=== PATIENT | female | born 1985 | race African-American/Black ===

== ENCOUNTER 2016-04-03 22:25 | Emergency (ER) | payer OTHER ==
[~2016-04-03] VITALS: Ht 167.6 cm; Wt 95.3 kg
[~2016-04-03 22:25] MED LIST: BACTRIM DS TAB1 EACH PO; CYCLOBENZAPRINE5 M2 PO; METHADONE H5 MG/5 ML PO; PERCOCET 325 MG1 TA2 PO; PERCOCET 5-3251 EACH PO; ZOFRAN ODT4 M1 SL; ZOFRAN ODT4 MG PO
--- NOTE | 2016-04-03 23:42 | ED GI/GU/ABDOMINAL COMPLAINT ---
History of Present Illness General Chief Complaint: Abdominal Pain/Flank Pain Stated Complaint: ABD PAIN Source: patient Exam Limitations: no limitations Vital Signs & Intake/Output Vital Signs & Intake/Output Vital Signs Date Time Temp Pulse Resp B/P Pulse O2 O2 Flow FiO2 Ox Delivery Rate 04/04 0032 96.1 54 20 104/66 100 04/03 2229 98.7 74 18 146/87 99 Room Air Room Air ED Intake and Output 04/04 0000 04/03 1200 Intake Total Output Total Balance Patient 210 lb Weight Allergies Coded Allergies: NO KNOWN ALLERGIES (12/14/15) Reconcile Medications Ibuprofen 600 MG TABLET 1 TAB PO Q6P PRN PAIN with food Oxycodone HCl/Acetaminophen (Percocet 5-325 MG Tablet) 1 EACH TABLET 1-2 TAB PO Q6P PRN PAIN Tramadol HCl (Ultram) 50 MG TABLET 1-2 TAB PO Q6P PRN PAIN Triage Note: TRIAGE: 30 Y/O FEMALE PRESENTS C/O 01/10 RIGHT LOWER ABDOMINAL PAIN SINCE YESTERDAY MORNING. "FEELS LIKE MY CYST PAIN." LAST BM THIS MORNING. Triage Nurses Notes Reviewed? yes ? n Is pt currently ? No HPI: Patient presents for evaluation of a right lower quadrant abdominal pain that began gradually yesterday morning. Patient is describing a constant cramping pain similar to prior ovarian cysts. Her last menstrual period was normal last month. She is not menstruating currently. She denies any associated fever, cold symptoms, dysuria or vaginal discharge. She took Motrin 600 mg yesterday without improvement and try Tylenol today, also without improvement. Past History Travel History Traveled to [place] past 21 day No Medical History Any Pertinent Medical History? 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 No Review of Systems Review of Systems Constitutional: Reports: no symptoms. EENTM: Reports: no symptoms. Respiratory: Reports: no symptoms. Cardiovascular: Reports: no symptoms. GI: Reports: see HPI. Genitourinary: Reports: no symptoms. Musculoskeletal: Reports: no symptoms. Skin: Reports: no symptoms. Neurological/Psychological: Reports: no symptoms. Hematologic/Endocrine: Reports: no symptoms. Immunologic/Allergic: Reports: no symptoms. All Other Systems: Reviewed and Negative Physical Exam Physical Exam Gastrointestinal: see below Comments: Gen.: Well-nourished, well-developed, no acute respiratory distress. Head: Normocephalic, atraumatic. Eyes: Normal inspection bilaterally Ears: Normal inspection bilaterally Nose: Normal inspection Throat/mouth : Moist mucosa Neck: Supple, full range of motion, no goiter Heart: Regular rate and rhythm, no murmurs rubs or gallops Lungs: Clear to auscultation bilaterally with normal air entry Chest: Nontender Back: Normal range of motion Abdomen: Soft, diffuse tenderness with brief voluntary guarding, nondistended, normal bowel sounds Extremities: Normal range of motion grossly, equal radial pulses, no cyanosis clubbing or edema Neurologic: Cranial nerves grossly intact, speech is clear Skin: warm and dry Psychiatric: Calm, cooperative, no apparent delusions or hallucinations Core Measures ACS in differential dx? No Severe Sepsis Present: No Septic Shock Present: No Progress Differential Diagnosis: ovarian cyst, appendicitis Plan of Care: Orders Procedure Date/time Status LIPASE 04/03 234 Complete COMPREHENSIVE METABOLIC PANEL 04/03 234 Complete CBC WITHOUT DIFFERENTIAL 04/03 234 Complete URINE 04/03 2226 Complete URINALYSIS 04/03 2226 Complete Current Medications Sig/Joss Start time Last Medication Dose Stop Time Status Admin Morphine Sulfate 4 MG ONCE ONE 04/04 013 UNVr (Morphine) 04/04 0131 Laboratory Tests 04/04/16 0044: Anion Gap 11, Estimated GFR > 60, BUN/Creatinine Ratio 25.0, Glucose 90, Calcium 9.6, Total Bilirubin 0.4, AST 24, ALT 34, Alkaline Phosphatase 53, Total Protein 7.0, Albumin 4.2, Globulin 2.8, Albumin/Globulin Ratio 1.5, Lipase 51 04/04/16 0010: Urinalysis LIGHT H, Urine Color STRAW, Urine Clarity CLDY H, Urine pH 7.0, Ur Specific [place] 1.020, Urine Protein NEG, Urine Ketones NEG, Urine Nitrite NEG, Urine Bilirubin NEG, Urine Urobilinogen 0.2, Ur Leukocyte Esterase TRACE H, Ur Microscopic SEDIMENT EXAMINED, Urine RBC 1-3, Urine WBC 3-5 H, Ur Epithelial Cells MANY H, Urine Mucus RARE, Urine Hemoglobin TRACE-LYSED, Urine Glucose NEG , Urine Test NEGATIVE 04/04/16 0000: CBC w Diff NO MAN DIFF REQ, RBC 5.27, MCV 78.1 L, MCH 25.4 L, RDW 14.9 H, MPV 8.8, Gran % 52.1, Lymphocytes % 37.9, Monocytes % 8.7, Eosinophils % 0.9, Basophils % 0.4, Absolute Granulocytes 4.6, Absolute Lymphocytes 3.3, Absolute Monocytes 0.8 H, Absolute Eosinophils 0.1, Absolute Basophils 0, PUBS MCHC 32.5 L Initial ED EKG: none Comments: 04/04/2016 1:28:07 AM I have updated the patient on test results. She states she is still having discomfort so have ordered a dose of morphine. I have looked at her imaging studies back to mid 2013. She did have an ovarian cyst at that point but subsequently has had no significant ovarian cysts and no ovarian torsions with repeated evaluations. Regarding today's presentation there is no indication of appendicitis, diverticulitis, renal colic ovarian cyst or ovarian torsion on CAT scan. I feel she is stable for outpatient management. Her primary care physician. Departure Departure Disposition: HOME OR SELF CARE Condition: Stable Clinical Impression Primary Impression: Nonspecific abdominal pain Secondary Impressions: Liver lesion Referrals: CLIFF HYLTON APRN (PCP/Family) Referred to [facility] as new patient No Additional Instructions: Ibuprofen 600 mg every 6 hours as needed for pain. Add tramadol as needed for pain. Follow-up with your primary care doctor for reevaluation today. Return if any concerns or sudden worsening. Please note that there might be incidental findings in your evaluation that are unrelated to the current emergency department visit. Please notify your primary care doctor about this emergency department visit in order to obtain and review all of the testing performed so that these incidental findings can be monitored as needed. If you had an x-ray performed, please understand that some fractures may not be seen on the initial set of x-rays. If your symptoms persist you might need a repeat set of x-rays to check for such a fracture. If you had a laceration evaluated, please understand that foreign bodies such as glass or wood may not be visible to the naked eye or on plain x-rays. If the wound becomes red, swollen, increasingly more painful or if there is any drainage from the wound, please have it reevaluated by a physician for the possibility of a retained foreign body. Thank you for choosing the [facility] for your care. It was a pleasure to serve you today. Delmar Bird M.D. [facility] Departure Forms: Customer Survey General Discharge Information Prescriptions: Current Visit Scripts Ibuprofen 1 TAB PO Q6P PRN PAIN #20 TAB with food Tramadol HCl (Ultram) 1-2 TAB PO Q6P PRN PAIN #12 TAB Critical Care Note Critical Care Note Critical Care Time: 30-74 min
[2016-04-04 00:22] LABS: ABSOLUTE BASOPHIL COUNT 0 /CUMM (0.0-0.2); ABSOLUTE EOSINOPHIL COUNT 0.1 /CUMM (0.0-0.7); ABSOLUTE GRANULOCYTE CT 4.6 /CUMM (1.4-6.5); ABSOLUTE LYMPH COUNT 3.3 /CUMM (1.2-3.4); ABSOLUTE MONOCYTE COUNT 0.8 /CUMM (0.10-0.60); BASOPHIL % 0.4 % (0.0-2.0); EOSINOPHIL % 0.9 % (0-5); GRANULOCYTE % 52.1 % (42.2-75.2); HEMATOCRIT 41.2 % (37-47); MEAN CORPUSCULAR HGB 25.4 PG (27.0-31.0); MEAN CORPUSCULAR HGB CONC 32.5 G/DL (33.0-37.0); MEAN CORPUSCULAR VOLUME 78.1 FL (81.0-99.0); MEAN PLATELET VOLUME 8.8 FL (7.4-10.4); PLATELET COUNT 277 /CUMM (130-400); RBC DISTRIBUTION WIDTH 14.9 % (11.5-14.5); RED BLOOD CELL CT 5.27 /CUMM (4.20-5.40); WHITE BLOOD CELL COUNT 8.8 /CUMM (4.8-10.8)
[2016-04-04 00:32] VITALS: BP 104/66
--- NOTE | 2016-04-04 01:19 | CT SCAN REPORT ---
EXAMINATION: CT ABDOMEN AND PELVIS WITH CONTRAST CLINICAL INFORMATION: Right lower quadrant abdominal pain. Presumptive diagnosis: Appendicitis, right ovarian cyst. COMPARISON: 08/27/2015 TECHNIQUE: Multidetector volumetric imaging was performed of the abdomen and pelvis before and after the IV administration of 93 mL of Optiray 320 intravenous contrast. Sagittal and coronal reformatted images were obtained on the technologist's workstation. DLP: 816.7 mGy-cm. FINDINGS: LUNG BASES: The visualized lung bases are unremarkable. LIVER, GALLBLADDER, AND BILIARY TREE: The liver is normal in size, shape, and attenuation. There is a subtle 0.9 cm focus of hypoattenuation in the posterior segment 5 on image 29/91 of series 2 which is unchanged from 2012 and of doubtful clinical significance, possibly a small cyst or hemangioma. The subtle 2.2 cm focus of enhancement within segment 8/4 a (image 14/91 of series 2) is not significantly changed in size as compared to 2012. The gallbladder is unremarkable with no evidence of radiopaque gallstones, gallbladder wall thickening, or obvious pericholecystic inflammatory changes. PANCREAS: Unremarkable. SPLEEN: Unremarkable. ADRENAL GLANDS: Unremarkable. KIDNEYS AND URETERS: The kidneys are normal in size, shape, and attenuation. No hydronephrosis, hydroureter, or calculi seen. No perinephric stranding. BLADDER: Unremarkable. GASTROINTESTINAL TRACT: Stomach, small bowel, and colon are normal in caliber. No bowel wall thickening or surrounding inflammatory changes are identified. Appendix is normal. No intraperitoneal free fluid or free air. ABDOMINAL WALL: No significant hernia is appreciated. LYMPH NODES: Normal. VASCULAR: Unremarkable. PELVIC VISCERA: No acute uterine abnormalities are identified. Ovaries are unremarkable. There is no intrapelvic free fluid is appreciated. OSSEOUS STRUCTURES: Unremarkable. IMPRESSION: 1. No acute intra-abdominal or intrapelvic abnormalities. Normal appendix. Uterus and ovaries are unremarkable, though ultrasound would be more sensitive and specific for evaluation of both. 2. Subtle hypodense and hypoenhancing nodules within the liver which appear unchanged dating back to 2012. These may correspond to cysts or hemangiomas. MRI of the abdomen with and without contrast would be more definitive.
[2016-04-04] MEDS ORDERED: ULTRAM50 M1 PO (01:31)
[2016-04-04] MEDS ORDERED: IBUPROFEN600 M1 PO (01:31)
== END 2016-04-04 01:56 ==
LOC: ERH 22:25
PROVIDERS: Emergency Medicine
DX: K76.9 Liver disease, unspecified (principal); R10.31 Right lower quadrant pain
CPT/HCPCS: 74177; 81001; 81025; 96361; 96374; 96375; J1885; J2405

== ENCOUNTER 2016-04-17 21:41 | Emergency (ER) | payer OTHER ==
[~2016-04-17 21:41] MED LIST changes: +IBUPROFEN600 M1 PO; +ULTRAM50 M1 PO
--- NOTE | 2016-04-17 22:24 | ED GI/GU/ABDOMINAL COMPLAINT ---
History of Present Illness General Chief Complaint: Abdominal Pain/Flank Pain Stated Complaint: ABD PAIN Source: patient, family, old records Exam Limitations: no limitations Vital Signs & Intake/Output Vital Signs & Intake/Output Vital Signs Date Time Temp Pulse Resp B/P Pulse O2 O2 Flow FiO2 Ox Delivery Rate 04/18 0149 97.8 56 18 114/69 98 Room Air 04/17 2239 Room Air 04/17 2155 96.8 71 18 124/75 98 Room Air ED Intake and Output 04/18 0000 04/17 1200 Intake Total 1000 Output Total Balance 1000 Intake, IV 1000 Allergies Coded Allergies: NO KNOWN ALLERGIES (12/14/15) Reconcile Medications Ibuprofen 600 MG TABLET 1 TAB PO Q6P PRN PAIN with food Oxycodone HCl/Acetaminophen (Percocet 5-325 MG Tablet) 1 EACH TABLET 1-2 TAB PO Q6P PRN PAIN Tramadol HCl (Ultram) 50 MG TABLET 1-2 TAB PO Q6P PRN PAIN Triage Note: TRIAGE; PT TO ED C/O RT SIDED ABD PAIN XFEW HOURS. STATES PAIN NO MATTER WHAT SHE IS DOING. PT STATES THAT SHE IS +N/V. DENIES ANY DIARRHEA. Triage Nurses Notes Reviewed? yes ? N Is pt currently ? No HPI: Patient had a sudden onset of right adnexal pain approximately 2 hours prior to arrival. The pain is sharp and stabbing in nature. There is no radiation. Pain is 10 out of 10. There are no aggravating or mitigating factors. Positive nausea and vomiting. No diarrhea. No dysuria or hematuria. Similar symptoms in the past when she's had a twisting of her ovary per the patient. Past History Travel History Traveled to [place] past 21 day No Medical History Any Pertinent Medical History? 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 No Review of Systems Review of Systems Constitutional: Reports: no symptoms. EENTM: Reports: no symptoms. Respiratory: Reports: no symptoms. Cardiovascular: Reports: no symptoms. GI: Reports: see HPI, abdominal pain, nausea, vomiting. Genitourinary: Reports: no symptoms. Musculoskeletal: Reports: no symptoms. Skin: Reports: no symptoms. Neurological/Psychological: Reports: no symptoms. Hematologic/Endocrine: Reports: no symptoms. Immunologic/Allergic: Reports: no symptoms. All Other Systems: Reviewed and Negative Physical Exam Physical Exam General Appearance: well developed/nourished, alert, awake, anxious, severe distress Head: atraumatic, normal appearance Eyes: Bilateral: PERRL, EOMI. Ears, Nose, Throat, Mouth: hearing grossly normal, moist mucous membrane Neck: normal inspection, supple Respiratory: normal breath sounds, chest non-tender, no respiratory distress, lungs clear Cardiovascular: regular rate/rhythm, normal peripheral pulses Gastrointestinal: normal bowel sounds, soft, guarding, tenderness Pelvic: normal external exam, normal speculum exam, no cerv. motion tender, tender adnexa (RIGHT) Back: normal inspection, normal range of motion, NO CVA TENDERNESS Extremities: normal range of motion Neurologic/Psych: no motor/sensory deficits, awake, alert, oriented x 3, normal mood/affect Skin: intact, normal color, warm/dry Core Measures ACS in differential dx? No Severe Sepsis Present: No Septic Shock Present: No Progress Differential Diagnosis: appendicitis, ectopic , ovarian cyst, ovarian torsion, UTI/pyelo Plan of Care: Orders Procedure Date/time Status Add-on Test (ER Only) 04/18 0146 Active GENITAL CULTURE 04/18 0133 Active TRICHOMONAS 04/18 0132 Complete POTASSIUM HYDROXIDE (EMA) 04/18 013 Active CHLAMYDIA-GC DNA PROBE 04/18 013 Active URINALYSIS 04/17 2223 Active HUMAN BETA HCG SCREEN 04/17 2223 Complete COMPREHENSIVE METABOLIC PANEL 04/17 2223 Complete CBC WITHOUT DIFFERENTIAL 04/17 2223 Complete Current Medications Sig/Joss Start time Last Medication Dose Stop Time Status Admin Hydromorphone HCl 1 MG ONCE ONE 04/18 2345 CAN (Dilaudid) 04/18 2346 Laboratory Tests 04/18/16 0023: Anion Gap 8, Estimated GFR > 60, BUN/Creatinine Ratio 24.3, Glucose 113 H, Calcium 9.3, Total Bilirubin 0.5, AST 23, ALT 32, Alkaline Phosphatase 59, Total Protein 6.9, Albumin 4.1, Globulin 2.8, Albumin/Globulin Ratio 1.5, Total Beta HCG NEGATIVE 04/17/166: CBC w Diff NO MAN DIFF REQ, RBC 5.04, MCV 78.6 L, MCH 25.3 L, RDW 14.6 H, MPV 8.1, Gran % 73.7, Lymphocytes % 17.5 L, Monocytes % 8.5, Eosinophils % 0.1, Basophils % 0.2, Absolute Granulocytes 7.4 H, Absolute Lymphocytes 1.8, Absolute Monocytes 0.9 H, Absolute Eosinophils 0, Absolute Basophils 0, PUBS MCHC 32.2 L Microbiology 04/18 132 GENITAL: Genital Culture - RECD 04/18 132 GENITAL: GC DNA Probe - RECD 04/18 132 GENITAL: Chlamydia DNA Probe (GRACIELA) - RECD 04/18 132 GENITAL: EMA Preparation - RECD 04/18 132 GENITAL: Trichomonas Preparation - COMP Diagnostic Imaging: Viewed by Me: Ultrasound. Discussed w/RAD: Ultrasound. Radiology Impression: PATIENT: JAI IZQUIERDO PRESENT AGE: 30 PATIENT ACCOUNT NO: [id number] : 87 LOCATION: [facility] ORDERING PHYSICIAN: DALIA IBARRA MD SERVICE DATE: 04/17/16 EXAM TYPE: US - US-TRANSVAGINAL EXAMINATION: US TRANSVAGINAL CLINICAL INFORMATION: Sudden onset right adnexal pain COMPARISON: CT 04/04/2016 TECHNIQUE: Sonographic evaluation of the pelvis was performed transabdominally and transvaginally. FINDINGS: The uterus measures 8.0 cm in length and 3.8 x 4.7 cm in AP and transverse dimensions. The endometrial stripe measures 0.3 cm in thickness. The cervix measures 2.2 cm in length. The right ovary measures 2.7 x 1.7 x 3.1 cm in size and contains several cysts suggestive of follicles. The left ovary measures 3.2 x 1.7 x 3.0 cm and also contains several small cysts. Doppler evaluation demonstrates normal-appearing flow in the bilateral kidneys. A small to moderate amount of fluid is noted in the right adnexa adjacent to the right ovary. IMPRESSION: No specific findings for ovarian torsion. Nonspecific right adnexal free fluid. DICTATED BY: ZOILA SOLORZANO MD DATE/TIME DICTATED:04/18/169 [employer] AGENT:ERICK DATE/TIME TRANSCRIBED:04/18/169 CONFIDENTIAL, DO NOT COPY WITHOUT APPROPRIATE AUTHORIZATION. <Electronically signed in Other Vendor System> SIGNED BY: ZOILA SOLORZANO MD 04/18/1616 Initial ED EKG: none Comments: No relief from IV morphine. Departure Departure Disposition: HOME OR SELF CARE Condition: Stable Clinical Impression Primary Impression: Lower abdominal pain, unspecified Referrals: CLIFF HYLTON APRN (PCP/Family) MANUEL RODRIGUEZ,NIK Whittaker Additional Instructions: FOLLOW UP WITH DR. JACKSON RETURN NEEDED Departure Forms: Customer Survey General Discharge Information Prescriptions: Current Visit Scripts Oxycodone HCl/Acetaminophen (Percocet 5-325 MG Tablet) 1-2 TAB PO Q6P PRN PAIN #20 TAB
[2016-04-17 22:50] LABS: ABSOLUTE BASOPHIL COUNT 0 /CUMM (0.0-0.2); ABSOLUTE EOSINOPHIL COUNT 0 /CUMM (0.0-0.7); ABSOLUTE GRANULOCYTE CT 7.4 /CUMM (1.4-6.5); ABSOLUTE LYMPH COUNT 1.8 /CUMM (1.2-3.4); ABSOLUTE MONOCYTE COUNT 0.9 /CUMM (0.10-0.60); BASOPHIL % 0.2 % (0.0-2.0); EOSINOPHIL % 0.1 % (0-5); GRANULOCYTE % 73.7 % (42.2-75.2); HEMATOCRIT 39.6 % (37-47); MEAN CORPUSCULAR HGB 25.3 PG (27.0-31.0); MEAN CORPUSCULAR HGB CONC 32.2 G/DL (33.0-37.0); MEAN CORPUSCULAR VOLUME 78.6 FL (81.0-99.0); MEAN PLATELET VOLUME 8.1 FL (7.4-10.4); PLATELET COUNT 282 /CUMM (130-400); RBC DISTRIBUTION WIDTH 14.6 % (11.5-14.5); RED BLOOD CELL CT 5.04 /CUMM (4.20-5.40); WHITE BLOOD CELL COUNT 10.1 /CUMM (4.8-10.8)
--- NOTE | 2016-04-18 00:17 | ULTRASOUND REPORT ---
EXAMINATION: US TRANSVAGINAL CLINICAL INFORMATION: Sudden onset right adnexal pain COMPARISON: CT 04/04/2016 TECHNIQUE: Sonographic evaluation of the pelvis was performed transabdominally and transvaginally. FINDINGS: The uterus measures 8.0 cm in length and 3.8 x 4.7 cm in AP and transverse dimensions. The endometrial stripe measures 0.3 cm in thickness. The cervix measures 2.2 cm in length. The right ovary measures 2.7 x 1.7 x 3.1 cm in size and contains several cysts suggestive of follicles. The left ovary measures 3.2 x 1.7 x 3.0 cm and also contains several small cysts. Doppler evaluation demonstrates normal-appearing flow in the bilateral kidneys. A small to moderate amount of fluid is noted in the right adnexa adjacent to the right ovary. IMPRESSION: No specific findings for ovarian torsion. Nonspecific right adnexal free fluid.
[2016-04-18 01:49] VITALS: BP 114/69
[2016-04-18] MEDS ORDERED: PERCOCET 5-3251 EACH PO (02:04)
== END 2016-04-18 02:29 ==
LOC: ERH 21:41
PROVIDERS: Emergency Medicine
DX: R10.31 Right lower quadrant pain (principal)
CPT/HCPCS: 87070; 87491; 87591; 96374; 96375; 96376; J1885; J2405

== ENCOUNTER 2016-06-14 15:29 | Emergency (ER) | payer OTHER ==
[~2016-06-14] VITALS: Ht 165.1 cm; Wt 95.3 kg
--- NOTE | 2016-06-14 15:43 | ED UPPER/LOWER EXTREMITY COMPL ---
History of Present Illness General Chief Complaint: Lower Extremity Injury Stated Complaint: PT HAD A FALL AND PAIN IN THE LEFT ANKLE Source: patient Exam Limitations: no limitations Vital Signs & Intake/Output Vital Signs & Intake/Output Vital Signs Date Time Temp Pulse Resp B/P Pulse O2 O2 Flow FiO2 Ox Delivery Rate 06/14 1533 97.1 88 18 145/80 98 Room Air Allergies Coded Allergies: NO KNOWN ALLERGIES (12/14/15) Reconcile Medications Hydrocodone/Acetaminophen (Vicodin 5-300 MG Tablet) 5 MG-300 MG TABLET 1 TAB PO BID PRN PAIN Ibuprofen 600 MG TABLET 1 TAB PO Q6P PRN PAIN with food Oxycodone HCl/Acetaminophen (Percocet 5-325 MG Tablet) 1 EACH TABLET 1-2 TAB PO Q6P PRN PAIN Oxycodone HCl/Acetaminophen (Percocet 5-325 MG Tablet) 5 MG-325 MG TABLET 1-2 TAB PO Q6P PRN PAIN Tramadol HCl (Ultram) 50 MG TABLET 1-2 TAB PO Q6P PRN PAIN Triage Note: PT STATES THAT SHE WAS STANDING ON CHAIR [employer] LAST PM WHEN THE CHAIR BROKE AND SHE HURT HER L FOOT. SWELLING NOTED. TOOK TYLENOL Triage Nurses Notes Reviewed? yes Onset: Abrupt Duration: constant Timing: single episode today Severity: severe Severity Numbers: 10 Pain/Injury Location: Left: Foot. Method of Injury: direct blow, fall : No Patient currently breastfeeds: No HPI: Patient is a 30-year-old female who presents to emergency room saying that today she was standing on approximate 1 foot high stool where she subsequently lost her balance and fell off striking the left lateral aspect of her foot to the ground resulting acute onset of pain. Patient denies any ankle knee pain. Patient took ibuprofen and Tylenol prior to arrival without relief of symptoms. States ambulation makes worse. Skin is still intact. Denies any head strike. (NICA BUENO) Past History Travel History Traveled to [place] past 21 day No Medical History Any Pertinent Medical History? 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 No (NICA BUENO) Review of Systems Review of Systems Constitutional: Reports: no symptoms. EENTM: Reports: no symptoms. Respiratory: Reports: no symptoms. Cardiovascular: Reports: no symptoms. Gastrointestinal/Abdominal: Reports: no symptoms. Genitourinary: Reports: no symptoms. Musculoskeletal: Reports: see HPI. Skin: Reports: no symptoms. Neurological/Psychological: Reports: no symptoms. Hematologic/Endocrine: Reports: no symptoms. Immunological: Reports: no symptoms. All Other Systems: Reviewed and Negative (NICA BUENO) Physical Exam Physical Exam General Appearance: mild distress Head: atraumatic Eyes: Bilateral: normal appearance. Ears, Nose, Throat: hearing grossly normal Neck: normal inspection, supple, full range of motion Back: normal inspection, normal range of motion, no vertebral tenderness Knee Left: normal range of motion, normal inspection Neurologic/Tendon: normal sensation, normal motor functions, normal tendon functions, responds to pain, no evidence tendon injury, no pulse deficit Skin: intact, normal color, warm/dry Comments: Left knee normal inspection nontender full active range of motion Left ankle normal section nontender full active range of motion Left foot noted severe point tenderness to the base of the fifth metatarsal and lateral aspect fifth ray. Skin intact no swelling dermatomes intact pulse +2 (NICA BUENO) Progress Differential Diagnosis: arterial insufficiency, compartment syndrome, contusion, dislocation, DVT, fracture, gout, septic arthritis, sprain, tendon injury Plan of Care: Orders Procedure Date/time Status Durable Medical Equipment 06/14 1650 Active URINE 06/14 1542 Complete Laboratory Tests 06/14/16 1555: Urine Test NEGATIVE Epifanio wrap was placed to left foot and post neurovascular was intact No osseous injury noted on x-rays. Patient was provided with crutches. Patient has nontender ankle (NICA BUENO) Diagnostic Imaging: Viewed by Me: Radiology Read. Radiology Impression: no acute abnormality, no fracture Comments: PATIENT: JAI IZQUIERDO PRESENT AGE: 30 PATIENT ACCOUNT NO: [id number] : 87 LOCATION: [facility] ORDERING PHYSICIAN: MARISSA UNGER DO SERVICE DATE: 06/14/16 EXAM TYPE: RAD - XRY-FOOT COMPLETE, LEFT EXAMINATION: XR FOOT, LEFT CLINICAL INFORMATION: Left foot pain and swelling after fall COMPARISON: None TECHNIQUE: AP, lateral, and oblique views of the left foot. FINDINGS: There is no evidence of acute fracture or dislocation of the left foot. No significant soft tissue swelling is appreciated. IMPRESSION: No acute fracture or dislocation of the left foot. (NICA BUENO) Departure Departure Disposition: HOME OR SELF CARE Condition: Stable Clinical Impression Primary Impression: Sprain of left foot Referrals: CLIFF HYLTON APRN (PCP/Family) GIOVANNA RODRIGUEZ,MARIA INES Workman Additional Instructions: As discussed begin icing the area directly 20 minutes every 2 hours. Begin over -the-counter ibuprofen as directed for pain and inflammation. Begin the prescription of Vicodin for breakthrough pain relief. prescription is waiting at [facility] pharmacy. If no better in one week follow-up with orthopedic Dr. Mccormick. If symptoms worsen return to emergency room. use the crutches provided to the emergency room until you can walk without pain Departure Forms: Customer Survey General Discharge Information Prescriptions: Current Visit Scripts Hydrocodone/Acetaminophen (Vicodin 5-300 MG Tablet) 1 TAB PO BID PRN PAIN #6 TAB (NICA BUENO) PA/AUTOMOTIVE SERVICE PORTER Co-Sign Statement Statement: ED Attending supervision documentation- [] I saw and evaluated the patient. I have also reviewed all the pertinent lab results and diagnostic results. I agree with the findings and the plan of care as documented in the PA's/AUTOMOTIVE SERVICE PORTER's documentation. x I have reviewed the ED Record and agree with the PA's/AUTOMOTIVE SERVICE PORTER's documentation. [] Additions or exceptions (if any) to the PAs/AUTOMOTIVE SERVICE PORTER's note and plan are summarized below: [] (MUSTAPHA RODRIGUEZ,MARYAM)
--- NOTE | 2016-06-14 16:49 | RADIOLOGY REPORT ---
EXAMINATION: XR FOOT, LEFT CLINICAL INFORMATION: Left foot pain and swelling after fall COMPARISON: None TECHNIQUE: AP, lateral, and oblique views of the left foot. FINDINGS: There is no evidence of acute fracture or dislocation of the left foot. No significant soft tissue swelling is appreciated. IMPRESSION: No acute fracture or dislocation of the left foot.
[2016-06-14] MEDS ORDERED: VICODIN 5-3001 EACH PO (16:51)
[2016-06-14 17:02] VITALS: BP 140/78
== END 2016-06-14 17:02 ==
LOC: ERH 15:29
DX: S93.602A Unspecified sprain of left foot, initial encounter (principal); W17.89XA Other fall from one level to another, initial encounter
CPT/HCPCS: 73630-LT; 81025

== ENCOUNTER 2016-07-25 12:51 | Emergency (ER) | payer OTHER ==
[~2016-07-25] VITALS: Ht 165.1 cm; Wt 95.3 kg
[~2016-07-25 12:51] MED LIST changes: +VICODIN 5-3001 EACH PO
[2016-07-25 13:09] VITALS: BP 124/77
[2016-07-25 13:29] LABS: ABSOLUTE BASOPHIL COUNT 0 /CUMM (0.0-0.2); ABSOLUTE EOSINOPHIL COUNT 0 /CUMM (0.0-0.7); ABSOLUTE GRANULOCYTE CT 4.9 /CUMM (1.4-6.5); ABSOLUTE LYMPH COUNT 2.4 /CUMM (1.2-3.4); ABSOLUTE MONOCYTE COUNT 0.4 /CUMM (0.10-0.60); BASOPHIL % 0.6 % (0.0-2.0); EOSINOPHIL % 0.4 % (0-5); GRANULOCYTE % 63.2 % (42.2-75.2); HEMATOCRIT 39.7 % (37-47); MEAN CORPUSCULAR HGB 25.5 PG (27.0-31.0); MEAN CORPUSCULAR HGB CONC 32.8 G/DL (33.0-37.0); MEAN CORPUSCULAR VOLUME 77.7 FL (81.0-99.0); MEAN PLATELET VOLUME 8.4 FL (7.4-10.4); PLATELET COUNT 276 /CUMM (130-400); RBC DISTRIBUTION WIDTH 14.4 % (11.5-14.5); RED BLOOD CELL CT 5.11 /CUMM (4.20-5.40); WHITE BLOOD CELL COUNT 7.8 /CUMM (4.8-10.8)
--- NOTE | 2016-07-25 14:37 | ED GI/GU/ABDOMINAL COMPLAINT ---
History of Present Illness General Chief Complaint: Abdominal Pain/Flank Pain Stated Complaint: ABD PAIN Source: patient Exam Limitations: no limitations Vital Signs & Intake/Output Vital Signs & Intake/Output Vital Signs Date Time Temp Pulse Resp B/P B/P Pulse O2 O2 Flow FiO2 Mean Ox Delivery Rate 07/25 1309 98.2 62 20 124/77 97 Room Air Allergies Coded Allergies: NO KNOWN ALLERGIES (12/14/15) Reconcile Medications Hydrocodone/Acetaminophen (Vicodin 5-300 MG Tablet) 5 MG-300 MG TABLET 1 TAB PO BID PRN PAIN Ibuprofen 600 MG TABLET 1 TAB PO Q6P PRN PAIN with food Oxycodone HCl/Acetaminophen (Percocet 5-325 MG Tablet) 1 EACH TABLET 1-2 TAB PO Q6P PRN PAIN Oxycodone HCl/Acetaminophen (Percocet 5-325 MG Tablet) 5 MG-325 MG TABLET 1-2 TAB PO Q6P PRN PAIN Oxycodone HCl/Acetaminophen (Percocet 5-325 MG Tablet) 5 MG-325 MG TABLET 1 TAB PO Q6HR PRN pain Tramadol HCl (Ultram) 50 MG TABLET 1-2 TAB PO Q6P PRN PAIN Triage Note: RLQ ABDOMINAL PAIN SINCE YESTERDAY. + NAUSEA. PT STATES PAIN GETTING WORSE TODAY Triage Nurses Notes Reviewed? yes ? n Is pt currently ? No Onset: Gradual Duration: day(s): (1) Timing: recent history Quality/Severity: sharpness, severe Severity Numbers: 10 Location: suprapubic Radiation: no radiation Activities at Onset: none Prior Abdominal Problems: similar symptoms Past Sexual History: Unobtainable at this time No Modifying Factors: none HPI: Patient is a 30-year-old female with history of ovarian cysts presenting to the emergency department with chief complaint of right suprapubic pain nothing going on since yesterday. History of similar pain in the past when she had an ovarian cyst. The last time she saw her SERVICE LEARNING COORDINATOR was a few months ago and everything was normal. Denies any fevers or chills. Positive nausea but no vomiting. No chest pain palpitations or shortness of breath. She's been taking over-the- counter ibuprofen and Tylenol with no relief. Denies any urinary frequency urgency or dysuria. Denies any vaginal discharge or bleeding. Last menstrual period was on June 20. Denies chance of STD. (EVELYN CASEY) Past History Travel History Traveled to [place] past 21 day No Medical History Any Pertinent Medical History? see below for history Neurological: NONE EENT: NONE Cardiovascular: NONE Respiratory: NONE Gastrointestinal: NONE Hepatic: NONE Renal: NONE Musculoskeletal: NONE Psychiatric: NONE Endocrine: NONE Blood Disorders: NONE Cancer(s): NONE RADIO JOURNALIST/Reproductive: OVARIAN CYSTS Surgical History Surgical History: OVARIAN CYST REMOVAL Psychosocial History What is your primary language Luxembourgish Tobacco Use: Never used ETOH Use: denies use Illicit Drug Use: denies illicit drug use Family History Hx Contributory? No (EVELYN CASEY) Review of Systems Review of Systems Constitutional: Reports: no symptoms. Comments Review of systems: See HPI, All other systems negative. Constitutional, no chills fever or weight loss HEENT: No visual changes no sore throat no congestion Cardiovascular: No chest pain Skin, no jaundice no rashes Respiratory: No dyspnea cough sputum or hemoptysis GI: no vomiting : No dysuria No hematuria Muscle skeletal: no back pain, no neck pain, Neurologic: No numbness no confusion Psych: No stress anxiety or depression,. Heme/endocrine: No bruising no bleeding no polyuria or polydipsia Immunology: No splenectomy or history of AIDS (EVELYN CASEY) Physical Exam Physical Exam General Appearance: well developed/nourished, no apparent distress, alert, awake , comfortable Gastrointestinal: soft, tenderness Comments: Obese person in no acute distress HEENT: Pupils equally round and reactive to light and accommodation. Nose is atraumatic. Neck: Normal inspection Back: Nontender, no CVA tenderness. Cardiovascular: Regular rate and rhythms no murmurs rubs or gallops, normal JVP Respiratory: Chest nontender. No respiratory distress.breath sounds clear to auscultation bilaterally Abdomen: Soft, tender to palpation in the right suprapubic region, no rebound or guarding, nondistended, no appreciable organomegaly. Normal bowel sounds. No ascites Extremity: No edema Neuro: Alert oriented x3 Skin: No appreciable rash on exposed skin, skin is warm and dry. Psych: Mood and affect is normal, memory and judgment is normal. Core Measures ACS in differential dx? No Severe Sepsis Present: No Septic Shock Present: No (EVELYN CASEY) Progress Differential Diagnosis: kidney stone, ovarian cyst, ovarian torsion, UTI/pyelo Plan of Care: Orders Procedure Date/time Status Add-on Test (ER Only) 07/25 1448 Active CULTURE,URINE 07/25 1325 Active COMPREHENSIVE METABOLIC PANEL 07/25 1315 Complete CBC WITHOUT DIFFERENTIAL 07/25 1315 Complete URINE 07/25 1257 Complete URINALYSIS 07/25 1257 Complete Laboratory Tests 07/25/16 1325: Urine Color YEL, Urine Clarity HAZY H, Urine pH 6.0, Ur Specific [place] 1.020, Urine Protein NEG, Urine Ketones TRACE H, Urine Nitrite NEG, Urine Bilirubin NEG, Urine Urobilinogen 1.0, Ur Leukocyte Esterase TRACE H, Ur Microscopic SEDIMENT EXAMINED, Urine RBC RARE, Urine WBC 3-5 H, Ur Epithelial Cells MOD H, Urine Bacteria FEW H, Urine Mucus FEW, Urine Hemoglobin TRACE-INTACT, Urine Glucose NEG, Urine Test NEGATIVE 07/25/16 1320: Anion Gap 11, Estimated GFR > 60, BUN/Creatinine Ratio 16.7, Glucose 90, Calcium 9.0, Total Bilirubin 0.5, AST 20, ALT 31, Alkaline Phosphatase 52, Total Protein 6.9, Albumin 4.0, Globulin 2.9, Albumin/Globulin Ratio 1.4, CBC w Diff NO MAN DIFF REQ, RBC 5.11, MCV 77.7 L, MCH 25.5 L, RDW 14.4, MPV 8.4, Gran % 63.2, Lymphocytes % 30.5, Monocytes % 5.3, Eosinophils % 0.4, Basophils % 0.6, Absolute Granulocytes 4.9, Absolute Lymphocytes 2.4, Absolute Monocytes 0.4, Absolute Eosinophils 0, Absolute Basophils 0, PUBS MCHC 32.8 L Microbiology 07/25 132 URINE ROUT: Urine Culture - RECD Diagnostic Imaging: Viewed by Me: Ultrasound. Discussed w/RAD: Ultrasound. Radiology Impression: PATIENT: JAI IZQUIERDO PRESENT AGE: 30 PATIENT ACCOUNT NO: [id number] : 87 LOCATION: [facility] ORDERING PHYSICIAN: EVELYN ORO SERVICE DATE: 07/25/16-1440 EXAM TYPE: US - US-TRANSVAGINAL EXAMINATION: TRANSVAGINAL AND TRANSABDOMINAL ULTRASOUND OF THE PELVIS CLINICAL INFORMATION: Right suprapubic pain. History of bilateral ovarian torsion COMPARISON: 04/17/2016 TECHNIQUE: Real-time scanning of the pelvis is acquired via transabdominal and transvaginal approach. Transvaginal images were obtained for more detailed evaluation of the ovaries. FINDINGS: UTERUS: Anteverted. Normal in size and appearance, measuring 7.8 x 4.1 x 4.4 cm (SAG x AP x TRANS). Cervical Length: 2.7 cm. Maximum Endometrial Thickness: 0.3 cm. Myometrium: Normal. OVARIES AND ADNEXA: The right ovary is increased in size as compared to prior. There is a new, complex multilocular cystic components of the right ovary measuring 3.4 x 2.3 x 2.7 cm. The left ovary is normal in appearance without superimposed lesions. Arterial and venous waveforms are present in both ovaries on spectral Doppler evaluation. Right Ovary: 5.7 x 2.8 x 4.4 cm, volume 34.6 mL. Previously, the right ovary measures 2.7 x 1.7 x 3.1 cm. Left Ovary: 2.8 x 2.8 x 2.2 cm, volume 5.7 mL. FREE FLUID: Small amount of free fluid is present in the pelvic cul-de-sac IMPRESSION: Enlargement of the right ovary as compared to prior with a multilocular, complex 2.4 cm cystic component. This is of uncertain etiology, potentially a complex hemorrhagic cyst. Consider follow-up in 6-8 weeks to verify resolution. Blood flow is present in both ovaries on color Doppler. No evidence of active ovarian torsion at this time. DICTATED BY: BETINA ALCANTAR MD DATE/TIME DICTATED:07/25/161551 SCLEROSCOPE TESTER:ERICK DATE/TIME TRANSCRIBED:07/25/161551 CONFIDENTIAL, DO NOT COPY WITHOUT APPROPRIATE AUTHORIZATION. <Electronically signed in Other Vendor System> SIGNED BY: BETINA ALCANTAR MD 07/25/16 5589 Initial ED EKG: none Comments: 07/25/2016 2:45:41 PM arrival patient is afebrile in no acute distress with reproducible pain over the right suprapubic region. Blood work is starting to come back on this patient. No elevated white blood cell count. Patient reporting this pain feels similar to previous ovarian cysts. Patient will for ultrasound. 07/25/2016 4:25:11 PM patient informed of ultrasound results revealing 2-1/2 cm ovarian cyst. She'll follow with SERVICE LEARNING COORDINATOR for repeat ultrasound in 6-8 weeks. Sent home with Percocet prescription for pain. She'll return for any sudden worsening symptoms or concerns. No signs of torsion. (EVELYN CASEY) Departure Departure Time of Disposition: 1622 Disposition: HOME OR SELF CARE Condition: Stable Clinical Impression Primary Impression: Ovarian cyst Qualifiers: Laterality: right Qualified Code: N83.201 - Unspecified ovarian cyst, right side Referrals: CLIFF HYLTON APRN (PCP/Family) Additional Instructions: Follow-up with your primary care physician call to make an appointment. Return for worsening symptoms or concerns. Take Percocet as prescribed for pain. Departure Forms: Customer Survey D/C INS-APPENDICITIS EXCLUSION General Discharge Information Prescriptions: Current Visit Scripts Oxycodone HCl/Acetaminophen (Percocet 5-325 MG Tablet) 1 TAB PO Q6HR PRN pain #10 TAB (EVELYN CASEY) PA/MOBILE PHLEBOTOMIST Co-Sign Statement Statement: ED Attending supervision documentation- [] I saw and evaluated the patient. I have also reviewed all the pertinent lab results and diagnostic results. I agree with the findings and the plan of care as documented in the PA's/MOBILE PHLEBOTOMIST's documentation. [x] I have reviewed the ED Record and agree with the PA's/MOBILE PHLEBOTOMIST's documentation. [] Additions or exceptions (if any) to the PAs/MOBILE PHLEBOTOMIST's note and plan are summarized below: [] (MARISSA UNGER DO
--- NOTE | 2016-07-25 16:16 | ULTRASOUND REPORT ---
EXAMINATION: TRANSVAGINAL AND TRANSABDOMINAL ULTRASOUND OF THE PELVIS CLINICAL INFORMATION: Right suprapubic pain. History of bilateral ovarian torsion COMPARISON: 04/17/2016 TECHNIQUE: Real-time scanning of the pelvis is acquired via transabdominal and transvaginal approach. Transvaginal images were obtained for more detailed evaluation of the ovaries. FINDINGS: UTERUS: Anteverted. Normal in size and appearance, measuring 7.8 x 4.1 x 4.4 cm (SAG x AP x TRANS). Cervical Length: 2.7 cm. Maximum Endometrial Thickness: 0.3 cm. Myometrium: Normal. OVARIES AND ADNEXA: The right ovary is increased in size as compared to prior. There is a new, complex multilocular cystic components of the right ovary measuring 3.4 x 2.3 x 2.7 cm. The left ovary is normal in appearance without superimposed lesions. Arterial and venous waveforms are present in both ovaries on spectral Doppler evaluation. Right Ovary: 5.7 x 2.8 x 4.4 cm, volume 34.6 mL. Previously, the right ovary measures 2.7 x 1.7 x 3.1 cm. Left Ovary: 2.8 x 2.8 x 2.2 cm, volume 5.7 mL. FREE FLUID: Small amount of free fluid is present in the pelvic cul-de-sac IMPRESSION: Enlargement of the right ovary as compared to prior with a multilocular, complex 2.4 cm cystic component. This is of uncertain etiology, potentially a complex hemorrhagic cyst. Consider follow-up in 6-8 weeks to verify resolution. Blood flow is present in both ovaries on color Doppler. No evidence of active ovarian torsion at this time.
[2016-07-25] MEDS ORDERED: PERCOCET 5-3251 EACH PO (16:23)
== END 2016-07-25 16:56 ==
LOC: ERH 12:51
PROVIDERS: Emergency Medicine
DX: N83.201 Unspecified ovarian cyst, right side (principal)
CPT/HCPCS: 81001; 81025; 87086; J3101

== ENCOUNTER 2016-08-02 12:00 | Emergency (ER) | payer OTHER ==
[~2016-08-02] VITALS: Ht 165.1 cm; Wt 95.3 kg
[2016-08-02 12:07] VITALS: BP 111/74
[2016-08-02] MEDS ORDERED: ZOFRAN ODT4 M1 SL ×2 (12:30)
--- NOTE | 2016-08-02 12:30 | ED GI/GU/ABDOMINAL COMPLAINT ---
History of Present Illness General Chief Complaint: Abdominal Pain/Flank Pain Stated Complaint: PT IS HAVING ABDOMINAL PAIN Source: patient, old records Exam Limitations: no limitations Vital Signs & Intake/Output Vital Signs & Intake/Output Vital Signs Date Time Temp Pulse Resp B/P B/P Pulse O2 O2 Flow FiO2 Mean Ox Delivery Rate 08/02 1207 97.4 67 16 111/74 97 Room Air Allergies Coded Allergies: NO KNOWN ALLERGIES (12/14/15) Reconcile Medications Hydrocodone/Acetaminophen (Vicodin 5-300 MG Tablet) 5 MG-300 MG TABLET 1 TAB PO BID PRN PAIN Ibuprofen 600 MG TABLET 1 TAB PO Q6P PRN PAIN with food Ondansetron (Zofran Odt) 4 MG TAB.RAPDIS 1 TAB SL TID PRN nausea Oxycodone HCl/Acetaminophen (Percocet 5-325 MG Tablet) 1 EACH TABLET 1-2 TAB PO Q6P PRN PAIN Oxycodone HCl/Acetaminophen (Percocet 5-325 MG Tablet) 5 MG-325 MG TABLET 1-2 TAB PO Q6P PRN PAIN Oxycodone HCl/Acetaminophen (Percocet 5-325 MG Tablet) 5 MG-325 MG TABLET 1 TAB PO Q6P PRN severe pain Oxycodone HCl/Acetaminophen (Percocet 5-325 MG Tablet) 5 MG-325 MG TABLET 1 TAB PO Q6HR PRN pain Tramadol HCl (Ultram) 50 MG TABLET 1-2 TAB PO Q6P PRN PAIN Triage Note: PT STATES SHE WAS SEEN HERE LST WEEK FOR ABD PAIN PT STATES THE PAIN HAS COME BACK. PT C/O RIGHT LOWER ABD PAIN . Triage Nurses Notes Reviewed? yes LMP (ages 10-50): now ? n Is pt currently ? No Onset: Last week Duration: day(s):, continues in ED, waxing and waning Timing: recent history Quality/Severity: moderate, sharpness Location: right lower quadrant Radiation: no radiation Activities at Onset: none Prior Abdominal Problems: similar symptoms Past Sexual History: Unobtainable at this time No Modifying Factors: none Associated Symptoms: abdominal pain HPI: One week prior to admission patient complained of right lower quadrant pain found to have complex hemorrhagic right ovarian cyst. She did not follow-up with her wellness assistant as she developed her menses. The pain is sharp occurring intermittently moderate to severe nonradiating associated with nausea improved with Percocet. She denies fever chills vomiting diarrhea chest pain cough shortness of breath headache dysuria rash bleeding Past History Travel History Traveled to [place] past 21 day No Medical History Any Pertinent Medical History? 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 No Review of Systems Review of Systems Constitutional: Reports: no symptoms. EENTM: Reports: no symptoms. Respiratory: Reports: no symptoms. Cardiovascular: Reports: no symptoms. GI: Reports: no symptoms. Genitourinary: Reports: see HPI, pain. Musculoskeletal: Reports: no symptoms. Skin: Reports: no symptoms. Neurological/Psychological: Reports: no symptoms. Hematologic/Endocrine: Reports: no symptoms. Immunologic/Allergic: Reports: no symptoms. All Other Systems: Reviewed and Negative Physical Exam Physical Exam General Appearance: well developed/nourished, alert, awake, anxious, mild distress, obese Head: atraumatic, normal appearance Eyes: Bilateral: normal appearance, PERRL, EOMI, normal inspection. Ears, Nose, Throat, Mouth: hearing grossly normal, moist mucous membrane Neck: normal inspection, supple, full range of motion, normal alignment, no midline tenderness Respiratory: normal breath sounds, chest non-tender, no respiratory distress, quiet respiration, lungs clear Cardiovascular: regular rate/rhythm, normal peripheral pulses, norml femoral pulses equa Peripheral Pulses: 4+ carotid (R), 4+ carotid (L) Gastrointestinal: normal bowel sounds, soft, no organomegaly, tenderness (mild) Back: normal inspection, normal range of motion Extremities: normal range of motion, no ligament instability Neurologic/Psych: no motor/sensory deficits, awake, alert, oriented x 3, normal gait, normal mood/affect, learning designer II-XII nml as tested Skin: intact, normal color, cyanosis Core Measures ACS in differential dx? No Severe Sepsis Present: No Septic Shock Present: No Progress Differential Diagnosis: appendicitis, ovarian cyst Plan of Care: Current Medications Sig/Joss Start time Last Medication Dose Stop Time Status Admin Ondansetron HCl 4 MG ONCE ONE 08/02 1245 UNVr (Zofran) 08/02 1246 Oxycodone/ 1 TAB ONCE ONE 08/02 1245 UNVr Acetaminophen 08/02 1246 (Percocet) Initial ED EKG: none Departure Departure Time of Disposition: 1228 Disposition: HOME OR SELF CARE Condition: Stable Clinical Impression Primary Impression: Ovarian cyst Qualifiers: Laterality: right Qualified Code: N83.201 - Unspecified ovarian cyst, right side Referrals: CLIFF HYLTON APRN (PCP/Family) WILSON BALTAZAR MD Call for gynecology follow up or with your doctor at [facility]. Departure Forms: Customer Survey General Discharge Information Prescriptions: Current Visit Scripts Ondansetron (Zofran Odt) 1 TAB SL TID PRN nausea #15 TAB Oxycodone HCl/Acetaminophen (Percocet 5-325 MG Tablet) 1 TAB PO Q6P PRN severe pain #15 TAB
[2016-08-02] MEDS ORDERED: PERCOCET 5-3251 EACH PO (12:32)
== END 2016-08-02 12:40 ==
LOC: ERH 12:00
DX: N83.209 Unspecified ovarian cyst, unspecified side (principal)
CPT/HCPCS: J3101

== ENCOUNTER 2016-08-22 11:49 | Emergency (ER) | payer OTHER | END 2016-08-22 12:42 | disposition admitted as inpatient to this hospital (09) | LOC: ERH 11:49 | DX: R10.32 Left lower quadrant pain (principal) | CPT/HCPCS: J1885 ==

== ENCOUNTER 2016-08-22 14:54 | Emergency (ER) | payer OTHER ==
[~2016-08-22] VITALS: Ht 165.1 cm; Wt 97.5 kg
[2016-08-22 15:13] VITALS: BP 129/79
[2016-08-22 15:54] LABS: ABSOLUTE BASOPHIL COUNT 0 /CUMM (0.0-0.2); ABSOLUTE EOSINOPHIL COUNT 0.1 /CUMM (0.0-0.7); ABSOLUTE LYMPH COUNT 2.7 /CUMM (1.2-3.4); ABSOLUTE MONOCYTE COUNT 0.7 /CUMM (0.10-0.60); BASOPHIL % 0.3 % (0.0-2.0); EOSINOPHIL % 0.6 % (0-5); GRANULOCYTE % 58.7 % (42.2-75.2); MEAN CORPUSCULAR HGB 25.1 PG (27.0-31.0); MEAN CORPUSCULAR HGB CONC 31.8 G/DL (33.0-37.0); MEAN CORPUSCULAR VOLUME 78.9 FL (81.0-99.0); MEAN PLATELET VOLUME 8.2 FL (7.4-10.4); PLATELET COUNT 284 /CUMM (130-400); RBC DISTRIBUTION WIDTH 14.9 % (11.5-14.5); RED BLOOD CELL CT 5.19 /CUMM (4.20-5.40); WHITE BLOOD CELL COUNT 8.4 /CUMM (4.8-10.8)
--- NOTE | 2016-08-22 17:24 | ED GENERAL ADULT ---
History of Present Illness General Chief Complaint: Abdominal Pain/Flank Pain Stated Complaint: ABD. PAIN Source: patient Exam Limitations: no limitations Vital Signs & Intake/Output Vital Signs & Intake/Output Vital Signs Date Time Temp Pulse Resp B/P B/P Pulse O2 O2 Flow FiO2 Mean Ox Delivery Rate 08/22 1513 97.7 64 18 129/79 98 Room Air Allergies Coded Allergies: NO KNOWN ALLERGIES (12/14/15) Triage Note: PRESENTS TO THE ED FOR EVALUATION OF LLQ PAIN X 3 DAYS. REPORTS HX OF OVARYAN CYSTS. STATED IT FEELS THE SAME IN THE PAST WHEN SHE WAS DISGNOSED WITH THE CYSTS. Triage Nurses Notes Reviewed? yes : No Patient currently breastfeeds: No HPI: 31-year-old female with a history of ovarian cysts and ovarian torsion presenting with left lower quadrant pain 3 days. Reports constant, gradually worsening, sharp pain that has begun radiating to left flank and left lower back , no worsening or alleviating factors. Has tried both Tylenol and ibuprofen at home without improvement. Denies fevers, nausea, vomiting, diarrhea, dysuria, vaginal discharge, vaginal bleeding. LMP 2 weeks ago. (RUFINO RDZ,KYLER) Past History Travel History Traveled to [place] past 21 day No Medical History Any Pertinent Medical History? 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 No (RUFINO RDZ,KYLER) Review of Systems Review of Systems Constitutional: Denies: chills, fever. Respiratory: Reports: no symptoms. Cardiovascular: Reports: no symptoms. GI: Reports: abdominal pain. Denies: diarrhea, nausea, vomiting. Genitourinary: Denies: discharge, dysuria, frequency, urgency. Musculoskeletal: Denies: back pain. Skin: Reports: no symptoms. Neurological/Psychological: Denies: numbness, paresthesia, tingling. (RUFINO RDZ,KYLER) Physical Exam Physical Exam General Appearance: well developed/nourished, no apparent distress, comfortable Head: atraumatic Respiratory: normal breath sounds, lungs clear Cardiovascular: regular rate/rhythm Gastrointestinal: normal bowel sounds, soft, tenderness, on exam abdomen is soft , nondistended, positive tenderness to palpation over the right lower quadrant both superficially and with deep palpation, tenderness to palpation superficially over the left flank and left lower back, no abdominal rebound or guarding, no CVA tenderness. Back: normal inspection, normal range of motion, muscle spasm (left low back), no vertebral tenderness Core Measures ACS in differential dx? No CVA/TIA Diagnosis: No Severe Sepsis Present: No Septic Shock Present: No (RUFINO RDZ,KYLER) Progress Differential Diagnoses I considered the following diagnoses in my evaluation of the patient: [Ovarian cyst versus ovarian torsion versus versus ectopic versus UTI versus pyelonephritis versus MSK strain versus renal stone] Plan of Care: Orders Procedure Date/time Status Add-on Test (ER Only) 08/22 180 Active URINE 08/22 1722 Complete URINALYSIS 08/22 151 Complete LIPASE 08/22 151 Complete COMPREHENSIVE METABOLIC PANEL 08/22 151 Complete CBC WITHOUT DIFFERENTIAL 08/22 151 Complete AMYLASE 08/22 151 Complete Laboratory Tests 08/22/16 1600: Urine Test NEGATIVE 08/22/16 1600: Urine Color YEL, Urine Clarity CLEAR, Urine pH 8.0, Ur Specific [place] 1.020, Urine Protein TRACE H, Urine Ketones NEG, Urine Nitrite NEG, Urine Bilirubin NEG, Urine Urobilinogen 1.0, Ur Leukocyte Esterase SMALL H, Ur Microscopic SEDIMENT EXAMINED, Urine RBC 1-3, Urine WBC 1-3 H, Ur Epithelial Cells FEW, Urine Hemoglobin TRACE-INTACT, Urine Glucose NEG 08/22/16 1542: Anion Gap 10, Estimated GFR > 60, BUN/Creatinine Ratio 15.7, Glucose 91, Calcium 9.0, Total Bilirubin 0.4, AST 22, ALT 34, Alkaline Phosphatase 53, Total Protein 6.9, Albumin 4.3, Globulin 2.6, Albumin/Globulin Ratio 1.7, Amylase 104, Lipase 196, CBC w Diff NO MAN DIFF REQ, RBC 5.19, MCV 78.9 L, MCH 25.1 L, RDW 14.9 H , MPV 8.2, Gran % 58.7, Lymphocytes % 32.1, Monocytes % 8.3, Eosinophils % 0.6, Basophils % 0.3, Absolute Granulocytes 5.0, Absolute Lymphocytes 2.7, Absolute Monocytes 0.7 H, Absolute Eosinophils 0.1, Absolute Basophils 0, PUBS MCHC 31.8 L Labs and urine unremarkable. Urine test negative. Transvaginal ultrasound showed no evidence of ovarian cyst or torsion. Given the patient is tender to palpation superficially over abdomen flank and lower back with palpable muscle spasm in the lower back abdominal pain is likely secondary to abdominal wall muscle strain. Patient had no pain relief after morphine but had significant pain relief after Toradol. Intrsucted to continue ibuprofen as needed at home and apply warm compresses to sore areas. (KYLER JOY PA-C) Initial ED EKG: none (RUFINO RDZ,KYLER) Departure Departure Disposition: HOME OR SELF CARE Condition: Stable Clinical Impression Primary Impression: LLQ pain Referrals: CLIFF HYLTON APRN (PCP/Family) Additional Instructions: Use ibuprofen as needed for pain. Apply ice to sore areas. Follow up with your primary care provider for reevaluation in 24 hours. Return to the ED for any new or worsening symptoms. Departure Forms: Customer Survey General Discharge Information (KYLER JOY PA-C) PA/MOBILE PRACTICE LEAD Co-Sign Statement Statement: ED Attending supervision documentation- [] I saw and evaluated the patient. I have also reviewed all the pertinent lab results and diagnostic results. I agree with the findings and the plan of care as documented in the PA's/MOBILE PRACTICE LEAD's documentation. [X] I have reviewed the ED Record and agree with the PA's/MOBILE PRACTICE LEAD's documentation. [] Additions or exceptions (if any) to the PAs/MOBILE PRACTICE LEAD's note and plan are summarized below: [] (SAFIA RODRIGUEZ,GENEVIEVE) Critical Care Note Critical Care Note Critical Care Time: non-applicable (KYLER JOY PA-C)
--- NOTE | 2016-08-22 18:58 | ULTRASOUND REPORT ---
EXAMINATION: ULTRASOUND OF THE PELVIS CLINICAL INFORMATION: Left lower quadrant pain. Ovarian cyst versus torsion.. COMPARISON: 07/25/2016.. TECHNIQUE: Transabdominal and transvaginal pelvic ultrasound. Doppler evaluation with spectral analysis performed. A transvaginal study was performed in addition to the transabdominal study which did not yield an adequate examination of the uterus and ovaries due to superimposed distended gas-filled loops of bowel. FINDINGS: The uterus is normal in size and appearance, measuring 7.7 x 3.5 x 4 cm longitudinally, anteroposteriorly and transversely. The endometrial stripe thickness is normal, measuring 0.6 cm in thickness. No focal myometrial mass is seen. The cervical length is normal measuring 2.3 cm. The ovaries bilaterally are visualized and appear normal, with the right ovary measuring 4.2 x 2.2 x 2.8 cm and the left ovary measuring 3.2 x 2.7 x 2.6 cm. Multiple small follicles are seen bilaterally. There aren't normal arterial and venous spectral waveforms bilaterally. No adnexal mass or free fluid collection seen. IMPRESSION: No evidence of active ovarian torsion at this time. Multiple ovarian follicles bilaterally without dominant cyst..
== END 2016-08-22 20:10 ==
LOC: ERH 14:54
PROVIDERS: Emergency Medicine
DX: R10.32 Left lower quadrant pain (principal)
CPT/HCPCS: 81001; 81025; 96374; 96375

== ENCOUNTER 2017-04-20 10:31 | Emergency (ER) | payer OTHER ==
[~2017-04-20] VITALS: Ht 165.1 cm; Wt 99.8 kg
[~2017-04-20 10:31] MED LIST changes: +CLONIDINE HCL0.1 MG PO; +CYCLOBENZAPRINE10 M1 PO; +METHYLPREDNISOLO4 M2 PO; +NAPROXEN500 M2 PO; +NARCAN4 MG NAS; +SUBOXONE 4 MG-1 EACH SL
--- NOTE | 2017-04-20 12:04 | ED GI/GU/ABDOMINAL COMPLAINT ---
History of Present Illness General Chief Complaint: General Adult Stated Complaint: nausea/vomiting Source: patient Exam Limitations: no limitations Allergies Coded Allergies: No Known Allergies (02/15/17) Reconcile Medications Buprenorphine HCl/Naloxone HCl (Suboxone 4 MG-1 MG Sl Film) 4 MG-1 MG FILM 2 MG SL BID MENTAL HEALTH (Reported) Naloxone HCl (Narcan) 4 MG/ACTUATION SPRAY 1 SPRAY ZAKIA AD PRN OPIOID INDUCED RESP. DEPRESSIO (Reported) Triage Note: PT TO ED C/O N/V SINCE 1430 YESTERDAY. Triage Nurses Notes Reviewed? yes ? n Is pt currently ? No HPI: 31 year old female with PMH of PCOS, opioid dependence currently on buprenorphine maintenance presents with acute onset nausea and vomiting. The patient was reportedly in her usual state of health until yesterday afternoon when she became nauseous and vomiting twice after eating empanadas. She continued to vomit after going home, was intolerant of PO intake including water and soup overnight. She vomiting a total of approximately ten times including three times this morning. Nonbloody, bilious (greenish yellow) emesis according to the patient. She denies any exacerbating or relieving factors and still feels nauseous at the time of evaluation. She reports feeling chills but denies any fevers, dizziness, headaches, cough, diarrhea, or dysuria. She has a history of ovarian torsion and cysts and had several laparascopic abdominal surgeries from [id number]. She has chronic constipation with 2 BMs/week, last BM yesterday. Last dose of suboxone yesterday morning before work, no signs or symptoms of withdrawal except nausea. She has some chronic back pain and has some sharp reproducible chest pain radiating towards her back in the same region and exacerbating her chronic pain that she attributes to wretching and vomiting. (Gilbert RODRIGUEZ,Marvel) Vital Signs & Intake/Output Vital Signs & Intake/Output Vital Signs Date Time Temp Pulse Resp B/P B/P Pulse O2 O2 Flow FiO2 Mean Ox Delivery Rate 04/20 1353 97.5 60 18 98/61 100 04/20 1042 97.5 60 20 116/76 98 Room Air (Marge RODRIGUEZ,Delmar Medrano) Past History Travel History Traveled to [place] past 21 day No Medical History Any Pertinent Medical History? 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 No (Marvel Hunt MD) Review of Systems Review of Systems Constitutional: Reports: chills. Denies: diaphoresis, fever, malaise, weakness. EENTM: Denies: blurred vision, nasal congestion, nasal pain, throat pain. Respiratory: Denies: cough, short of breath. Cardiovascular: Reports: chest pain. GI: Reports: abdominal pain, constipation, nausea, vomiting. Denies: diarrhea, bloody stool. Genitourinary: Denies: dysuria, frequency. Musculoskeletal: Reports: back pain. Skin: Reports: no symptoms. Neurological/Psychological: Reports: no symptoms. Hematologic/Endocrine: Reports: no symptoms. Immunologic/Allergic: Reports: no symptoms. All Other Systems: Reviewed and Negative (Marvel Hunt MD) Physical Exam Physical Exam General Appearance: well developed/nourished, no apparent distress Respiratory: normal breath sounds, chest non-tender, no respiratory distress, quiet respiration, lungs clear Cardiovascular: regular rate/rhythm, normal peripheral pulses, reproducible chest pain on right side with palpation Gastrointestinal: normal bowel sounds, soft, tender on deep palpation diffusely but pt complains most about RLQ, no rebound tenderness or guarding Comments: SERVICE DATE: 04/20/17-1211 EXAM TYPE: US - US-TRANSVAGINAL EXAMINATIONS: ULTRASOUND PELVIC, COMPLETE AND DOPPLER INTERROGATION CLINICAL INFORMATION: Pelvic pain. COMPARISON: 11/19/2016. TECHNIQUE: Transabdominal and transvaginal imaging was performed. Transvaginal imaging was performed for further evaluation of the endometrium and adnexa. Doppler interrogation spectral analysis was performed. FINDINGS: The uterus is of normal size and echogenicity measuring 8.0 x 4.0 x 4.9 cm. A regular homogeneous endometrium is identified measuring 0.4 cm. The cervical length is 1.5 cm. Both ovaries are of normal contour and echogenicity. The right measures 4.1 x 2.4 x 3.9 cm for a volume of 19.8 cc. The left measures 4.1 x 2.4 x 2.9 cm for a volume of 14.7 cc. Normal arterial and venous blood flow is present bilaterally. Several ovarian follicles are present bilaterally. The largest measure 11 mm bilaterally. There is no pelvic free fluid. IMPRESSION: No evidence for ovarian torsion. Again identified are numerous peripheral ovarian follicles in the setting of increased ovarian volume bilaterally. Core Measures ACS in differential dx? No Sepsis Present: No Sepsis Focused Exam Completed? 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 Instructed to follow up with PCP and OBGYN. Return to ED for worsening symptoms. (Marvel Hunt MD) Plan of Care: Orders Procedure Date/time Status CULTURE,URINE 04/20 115 Active URINE DRUGS OF ABUSE 04/20 115 Complete URINALYSIS 04/20 115 Complete COMPREHENSIVE METABOLIC PANEL 04/20 1153 Complete CBC WITHOUT DIFFERENTIAL 04/20 1153 Complete Laboratory Tests 04/20/17 1221: Anion Gap 13, Estimated GFR > 60, BUN/Creatinine Ratio 17.1, Glucose 91, Calcium 9.4, Total Bilirubin 0.5, AST 27, ALT 37, Alkaline Phosphatase 64, Total Protein 7.5, Albumin 4.5, Globulin 3.0, Albumin/Globulin Ratio 1.5, CBC w Diff NO MAN DIFF REQ, RBC 5.29, MCV 78.6 L, MCH 25.4 L, RDW 14.6 H, MPV 8.0, Gran % 68.0, Lymphocytes % 24.2, Monocytes % 6.9, Eosinophils % 0.4, Basophils % 0.5, Absolute Granulocytes 4.1, Absolute Lymphocytes 1.5, Absolute Monocytes 0.4, Absolute Eosinophils 0, Absolute Basophils 0, PUBS MCHC 32.3 L 04/20/17 1210: Urine Opiates Screen < 100.00, Methadone Screen < 40, Barbiturate Screen < 60, Ur Phencyclidine Scrn < 6.00, Amphetamines Screen < 100, U Benzodiazepines Scrn < 85, Urine Cocaine Screen < 50, Urine Cannabis Screen > 80.00 H, Urine Color YEL, Urine Clarity HAZY H, Urine pH 7.0, Ur Specific [place] 1.015, Urine Protein NEG, Urine Ketones NEG, Urine Nitrite NEG, Urine Bilirubin NEG, Urine Urobilinogen 2.0 H, Ur Leukocyte Esterase SMALL H, Ur Microscopic SEDIMENT EXAMINED, Urine RBC 3-5, Urine WBC 1-3 H, Ur Epithelial Cells PACKD H, Urine Bacteria MANY H, Urine Mucus RARE, Urine Hemoglobin TRACE-LYSED, Urine Glucose NEG Microbiology 04/20 1210 URINE ROUT: Urine Culture - RECD (Marge RODRIGUEZ,Delmar Medrano) Departure Departure Time of Disposition: 1424 Disposition: HOME OR SELF CARE Condition: Stable Clinical Impression Primary Impression: Gastroenteritis Referrals: Patient Has No Primary Care Dr (PCP/Family) Departure Forms: Customer Survey General Discharge Information (Gilbert RODRIGUEZ,Marvel) PA/CORDWOOD CUTTER Co-Sign Statement Statement: ED Attending supervision documentation- [X] I saw and evaluated the patient. I have also reviewed all the pertinent lab results and diagnostic results. I agree with the findings and the plan of care as documented in the PA's/CORDWOOD CUTTER's documentation. [] I have reviewed the ED Record and agree with the PA's/CORDWOOD CUTTER's documentation. [] Additions or exceptions (if any) to the PAs/CORDWOOD CUTTER's note and plan are summarized below: [] (Marge RODRIGUEZ,Delmar Medrano)
[2017-04-20 12:30] LABS: ABSOLUTE BASOPHIL COUNT 0 /CUMM (0.0-0.2); ABSOLUTE EOSINOPHIL COUNT 0 /CUMM (0.0-0.7); ABSOLUTE GRANULOCYTE CT 4.1 /CUMM (1.4-6.5); ABSOLUTE LYMPH COUNT 1.5 /CUMM (1.2-3.4); ABSOLUTE MONOCYTE COUNT 0.4 /CUMM (0.10-0.60); BASOPHIL % 0.5 % (0.0-2.0); EOSINOPHIL % 0.4 % (0-5); HEMATOCRIT 41.6 % (37-47); MEAN CORPUSCULAR HGB 25.4 PG (27.0-31.0); MEAN CORPUSCULAR HGB CONC 32.3 G/DL (33.0-37.0); MEAN CORPUSCULAR VOLUME 78.6 FL (81.0-99.0); PLATELET COUNT 306 /CUMM (130-400); RBC DISTRIBUTION WIDTH 14.6 % (11.5-14.5); RED BLOOD CELL CT 5.29 /CUMM (4.20-5.40)
[2017-04-20 13:53] VITALS: BP 98/61
--- NOTE | 2017-04-20 14:28 | ULTRASOUND REPORT ---
EXAMINATIONS: ULTRASOUND PELVIC, COMPLETE AND DOPPLER INTERROGATION CLINICAL INFORMATION: Pelvic pain. COMPARISON: 11/19/2016. TECHNIQUE: Transabdominal and transvaginal imaging was performed. Transvaginal imaging was performed for further evaluation of the endometrium and adnexa. Doppler interrogation spectral analysis was performed. FINDINGS: The uterus is of normal size and echogenicity measuring 8.0 x 4.0 x 4.9 cm. A regular homogeneous endometrium is identified measuring 0.4 cm. The cervical length is 1.5 cm. Both ovaries are of normal contour and echogenicity. The right measures 4.1 x 2.4 x 3.9 cm for a volume of 19.8 cc. The left measures 4.1 x 2.4 x 2.9 cm for a volume of 14.7 cc. Normal arterial and venous blood flow is present bilaterally. Several ovarian follicles are present bilaterally. The largest measure 11 mm bilaterally. There is no pelvic free fluid. IMPRESSION: No evidence for ovarian torsion. Again identified are numerous peripheral ovarian follicles in the setting of increased ovarian volume bilaterally.
== END 2017-04-20 14:37 ==
LOC: ERH 10:31
DX: K52.9 Noninfective gastroenteritis and colitis, unspecified (principal); R07.9 Chest pain, unspecified; R10.31 Right lower quadrant pain; F11.20 Opioid dependence, uncomplicated
CPT/HCPCS: 80307; 81001; 87086; 96361; 96374; 96375; J1885; J2405

== ENCOUNTER 2017-08-05 01:33 | Emergency (ER) | payer OTHER ==
[~2017-08-05] VITALS: Ht 165.1 cm; Wt 98.4 kg
--- NOTE | 2017-08-05 01:46 | ED GI/GU/ABDOMINAL COMPLAINT ---
History of Present Illness General Chief Complaint: General Adult Stated Complaint: "ABD PAIN N+V-D" Source: patient, family Exam Limitations: no limitations Vital Signs & Intake/Output Vital Signs & Intake/Output Vital Signs Date Time Temp Pulse Resp B/P B/P Pulse O2 O2 Flow FiO2 Mean Ox Delivery Rate 08/05 05 98.6 52 20 111/53 96 Room Air 08/05 0350 98.7 60 18 142/73 96 Room Air 08/05 0143 97.5 69 20 129/83 99 Room Air Allergies Coded Allergies: No Known Allergies (02/15/17) Reconcile Medications Buprenorphine HCl/Naloxone HCl (Suboxone 4 MG-1 MG Sl Film) 4 MG-1 MG FILM 2 MG SL BID MENTAL HEALTH (Reported) Naloxone HCl (Narcan) 4 MG/ACTUATION SPRAY 1 SPRAY ZAKIA AD PRN OPIOID INDUCED RESP. DEPRESSIO (Reported) Triage Note: 31YO FEMALE TO TRIAGE W/CO RLQ PAIN THAT CAME ON 1 HR AGO. HX OVARIAN CYSTS W/MULTIPLE SURG. VOMITNG IN TRIAGE AND WR Triage Nurses Notes Reviewed? yes ? n Is pt currently ? No Onset: Abrupt Duration: hour(s): Timing: single episode today Quality/Severity: sharpness Location: right lower quadrant Radiation: no radiation Activities at Onset: none Modifying Factors: Worsens With: palpation, vomiting. Associated Symptoms: abdominal pain HPI: 31 yo woman h/o ovarian cysts presents with 1 hour of sudden, sharp right lower quadrant abdominal pain, associated with nausea and vomiting. No diarrhea, fever, chills, dysuria, vaginal discharge. She is otherwise well. Past History Travel History Traveled to [place] past 21 day No Medical History Any Pertinent Medical History? 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 No Review of Systems Review of Systems Constitutional: Reports: no symptoms. EENTM: Reports: no symptoms. Respiratory: Reports: no symptoms. Cardiovascular: Reports: no symptoms. GI: Reports: no symptoms. Genitourinary: Reports: no symptoms. Musculoskeletal: Reports: no symptoms. Skin: Reports: no symptoms. Neurological/Psychological: Reports: no symptoms. Hematologic/Endocrine: Reports: no symptoms. Immunologic/Allergic: Reports: no symptoms. All Other Systems: Reviewed and Negative Physical Exam Physical Exam General Appearance: well developed/nourished, moderate distress Head: atraumatic, normal appearance Eyes: Bilateral: normal appearance. Ears, Nose, Throat, Mouth: hearing grossly normal, moist mucous membrane Neck: normal inspection, supple, full range of motion Respiratory: normal breath sounds, chest non-tender, no respiratory distress, quiet respiration, lungs clear Cardiovascular: regular rate/rhythm Gastrointestinal: normal bowel sounds, soft, rlq tenderness to palpation, w/ rosving's sign, mild rebound tenderness Back: normal inspection, normal range of motion Extremities: normal range of motion Neurologic/Psych: no motor/sensory deficits, awake, alert, oriented x 3 Skin: intact, normal color, warm/dry Core Measures ACS in differential dx? No Sepsis Present: No Sepsis Focused Exam Completed? No Progress Differential Diagnosis: appy vs ovarian torsion vs other. Plan of Care: Orders Procedure Date/time Status TRICHOMONAS 08/05 157 Complete POTASSIUM HYDROXIDE (EMA) 08/05 157 Complete GENITAL CULTURE 08/05 157 Active CHLAMYDIA-GC DNA PROBE 08/05 157 Active URINALYSIS 08/05 145 Active LIPASE 08/05 145 Complete HEPATIC FUNCTION PANEL 08/05 145 Complete HUMAN BETA HCG SCREEN 08/05 145 Complete CBC WITHOUT DIFFERENTIAL 08/05 145 Complete BASIC METABOLIC PANEL 08/05 145 Complete AMYLASE 08/05 145 Complete Laboratory Tests 08/05/17 0155: Anion Gap 13, Estimated GFR > 60, BUN/Creatinine Ratio 25.7 H, Glucose 105 H, Calcium 9.3, Total Bilirubin 0.3, Direct Bilirubin 0.3, AST 24, ALT 26, Alkaline Phosphatase 64, Total Protein 6.9, Albumin 4.2, Amylase 125 H, Lipase 71, Total Beta HCG NEGATIVE, CBC w Diff MAN DIFF ORDERED, RBC 4.90, MCV 78.7 L, MCH 25.6 L, MCHC 32.5 L, RDW 15.1 H, MPV 8.2, Gran % 49.1, Lymphocytes % 40.1, Monocytes % 9.4 H, Eosinophils % 1.1, Basophils % 0.3, Absolute Granulocytes 5.6, Segmented Neutrophils 42 L, Absolute Lymphocytes 4.6 H, Lymphocytes 51, Monocytes 6, Absolute Monocytes 1.1 H, Eosinophils 1, Absolute Eosinophils 0.1, Absolute Basophils 0, Platelet Estimate ADEQUATE, Normocytic RBCs VERIFIED, Normochromic RBCs VERIFIED Microbiology 08/05 429 GENITAL: GC DNA Probe - RECD 08/05 429 GENITAL: Chlamydia DNA Probe (GRACIELA) - RECD 08/05 429 GENITAL: EMA Preparation - COMP 08/05 429 GENITAL: Trichomonas Preparation - COMP 08/05 429 GENITAL: Genital Culture - RECD Diagnostic Imaging: Viewed by Me: Ultrasound. Discussed w/RAD: Ultrasound. Radiology Impression: PATIENT: JAI IZQUIERDO PRESENT AGE: 31 PATIENT ACCOUNT NO: [id number] : 87 LOCATION: [facility] [place] ORDERING PHYSICIAN: Wilber Kim MD SERVICE DATE: 08/05/17 EXAM TYPE: US - US-TRANSVAGINAL EXAMINATION: US TRANSVAGINAL CLINICAL INFORMATION: Right lower quadrant pain, question ovarian torsion COMPARISON: TECHNIQUE: Sonographic evaluation of the pelvis was performed transabdominally and transvaginally. FINDINGS: The uterus measures 6.8 cm in length and 3.7 x 4.5 cm in AP and transverse dimensions. The cervix measures 2.4 cm in length. The endometrial thickness measures 0.5 cm. The right ovary measures 5.8 x 3.7 x 4.2 cm. There is a thick-walled 1.8 x 1.6 x 2.2 cm cyst. There is an additional, heterogeneous structure adjacent to the right ovary in the right adnexa, of uncertain etiology. Doppler evaluation demonstrates normal- appearing flow in the right ovary. The left ovary measures 3.4 x 2.6 x 2.6 cm and has a normal appearance, including normal-appearing Doppler waveforms. A small amount of pelvic free fluid is present. IMPRESSION: 1. Mild asymmetric enlargement of the right ovary. Although flow is demonstrated in the right ovary at this time, the possibility of intermittent torsion cannot be excluded in the proper clinical setting. 2. Additional adjacent heterogeneous structure in the right adnexa, of uncertain etiology. It is possible that this represents an additional portion of the enlarged right ovary. Evaluation with pelvic MRI may be helpful for better delineation. 3. Small volume of pelvic free fluid which is nonspecific and may be physiologic. DICTATED BY: Miguel Sosa MD DATE/TIME DICTATED:08/05/17407 ASSISTANT PROPERTY MANAGER:ERICK DATE/TIME TRANSCRIBED:407 CONFIDENTIAL, DO NOT COPY WITHOUT APPROPRIATE AUTHORIZATION. < Electronically signed in Other Vendor System> SIGNED BY: Miguel Sosa MD 08/05/17419 Initial ED EKG: none Departure Departure Disposition: HOME OR SELF CARE Condition: Stable Clinical Impression Primary Impression: Abdominal pain Secondary Impressions: Cyst of ovary, Ovarian torsion, Pelvic mass Referrals: Patient Has No Primary Care Dr (PCP/Family) Departure Forms: Customer Survey General Discharge Information Comments 08/05/17, 4:29am... 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 given question of adnexal mass.... 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 she suggests transfer.... 08.05.17, 4:36am... 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 trujillo ([place] sugar mill worker) Critical Care Note Critical Care Note Critical Care Time: 30-74 min
[2017-08-05 02:07] LABS: ABSOLUTE BASOPHIL COUNT 0 /CUMM (0.0-0.2); ABSOLUTE EOSINOPHIL COUNT 0.1 /CUMM (0.0-0.7); ABSOLUTE GRANULOCYTE CT 5.6 /CUMM (1.4-6.5); ABSOLUTE LYMPH COUNT 4.6 /CUMM (1.2-3.4); ABSOLUTE MONOCYTE COUNT 1.1 /CUMM (0.10-0.60); BASOPHIL % 0.3 % (0.0-2.0); EOSINOPHIL % 1.1 % (0-5); GRANULOCYTE % 49.1 % (42.2-75.2); HEMATOCRIT 38.5 % (37-47); MEAN CORPUSCULAR HGB 25.6 PG (27.0-31.0); MEAN CORPUSCULAR HGB CONC 32.5 G/DL (33.0-37.0); MEAN CORPUSCULAR VOLUME 78.7 FL (81.0-99.0); MEAN PLATELET VOLUME 8.2 FL (7.4-10.4); PLATELET COUNT 302 /CUMM (130-400); RBC DISTRIBUTION WIDTH 15.1 % (11.5-14.5); WHITE BLOOD CELL COUNT 11.5 /CUMM (4.8-10.8)
--- NOTE | 2017-08-05 04:20 | ULTRASOUND REPORT ---
EXAMINATION: US TRANSVAGINAL CLINICAL INFORMATION: Right lower quadrant pain, question ovarian torsion COMPARISON: 04/20/2017 TECHNIQUE: Sonographic evaluation of the pelvis was performed transabdominally and transvaginally. FINDINGS: The uterus measures 6.8 cm in length and 3.7 x 4.5 cm in AP and transverse dimensions. The cervix measures 2.4 cm in length. The endometrial thickness measures 0.5 cm. The right ovary measures 5.8 x 3.7 x 4.2 cm. There is a thick-walled 1.8 x 1.6 x 2.2 cm cyst. There is an additional, heterogeneous structure adjacent to the right ovary in the right adnexa, of uncertain etiology. Doppler evaluation demonstrates normal-appearing flow in the right ovary. The left ovary measures 3.4 x 2.6 x 2.6 cm and has a normal appearance, including normal-appearing Doppler waveforms. A small amount of pelvic free fluid is present. IMPRESSION: 1. Mild asymmetric enlargement of the right ovary. Although flow is demonstrated in the right ovary at this time, the possibility of intermittent torsion cannot be excluded in the proper clinical setting. 2. Additional adjacent heterogeneous structure in the right adnexa, of uncertain etiology. It is possible that this represents an additional portion of the enlarged right ovary. Evaluation with pelvic MRI may be helpful for better delineation. 3. Small volume of pelvic free fluid which is nonspecific and may be physiologic.
[2017-08-05 05:52] VITALS: BP 111/53
== END 2017-08-05 06:11 | disposition short-term general hospital (02) ==
LOC: ERH 01:33
PROVIDERS: Pediatrics
DX: N83.201 Unspecified ovarian cyst, right side (principal); N83.511 Torsion of right ovary and ovarian pedicle
CPT/HCPCS: 87070; 87491; 87591; 96361; 96374; 96375; 96376; 99291; J1885; J2405

== ENCOUNTER 2017-09-12 17:20 | Emergency (ER) | payer OTHER ==
[~2017-09-12] VITALS: Ht 165.1 cm; Wt 94.3 kg
--- NOTE | 2017-09-12 17:41 | ED GI/GU/ABDOMINAL COMPLAINT ---
History of Present Illness General Chief Complaint: Abdominal Pain/Flank Pain Stated Complaint: RT SIDE ABD PAIN Source: patient Exam Limitations: no limitations Vital Signs & Intake/Output Vital Signs & Intake/Output Vital Signs Date Time Temp Pulse Resp B/P B/P Pulse O2 O2 Flow FiO2 Mean Ox Delivery Rate 09/12 1726 98.4 92 18 147/79 98 Room Air Allergies Coded Allergies: No Known Allergies (02/15/17) Reconcile Medications Buprenorphine HCl/Naloxone HCl (Suboxone 4 MG-1 MG Sl Film) 4 MG-1 MG FILM 2 MG SL BID MENTAL HEALTH (Reported) Naloxone HCl (Narcan) 4 MG/ACTUATION SPRAY 1 SPRAY ZAKIA AD PRN OPIOID INDUCED RESP. DEPRESSIO (Reported) Oxycodone HCl/Acetaminophen (Percocet 5-325 MG Tablet) 5 MG-325 MG TABLET 1 TAB PO 4 TIMES/DAY PAIN Triage Note: 32 YO FEMALE TO TRIAGE FOR EVAL OF RLQ STABBING PAIN SINCE TODAY. STATES HX OF OVARIAN TORSION, STATES THIS FEELS THE SAME. STATSE WAS HERE IN AUGUST FOR SAME AND WAS SENT TO [facility] FOR SURGERY. +VOMTIING. DENIES VAGINAL BLEEDING/DISCAHRGE. Triage Nurses Notes Reviewed? yes LMP (ages 10-50): date (09/05) ? N Is pt currently ? No Onset: Abrupt Duration: hour(s): (12:30 ), constant, continues in ED, getting worse Timing: recent history Quality/Severity: sharpness, severe Severity Numbers: 10 Location: right lower quadrant Radiation: no radiation Activities at Onset: none Prior Abdominal Problems: similar symptoms (OVARIAN TORSION ) Sexually Active: Yes No Modifying Factors: none Modifying Factors: Worsens With: movement, palpation. Associated Symptoms: abdominal pain, nausea/vomiting HPI: 32-year-old female history of ovarian cysts and ovarian torsion since her evaluation of acute onset right lower quadrant abdominal pain. Patient states symptoms started initially around 12:30 PM today with mild right lower quadrant cramping and nausea and vomiting. She states that this pain got significant worse around 4 PM today and has been constant since. Pain is located in the right pelvis and right lower quadrant described as sharp stabbing pain. She reports it is similar to previous where she had been treated for ovarian torsion. She reports that she has had surgery for ovarian torsion multiple times. She denies any vaginal bleeding or vaginal discharge or urinary symptoms back pain fever chest pain shortness of breath. No other abdominal surgeries. She has taken Motrin without any improvement. (Panfilo Mena) Past History Travel History Traveled to [place] past 21 day No Medical History Any Pertinent Medical History? see below for history Neurological: NONE EENT: NONE Cardiovascular: NONE Respiratory: NONE Gastrointestinal: OVARYAN CYSTS Hepatic: NONE Renal: NONE Musculoskeletal: NONE Psychiatric: NONE Endocrine: NONE Blood Disorders: NONE Cancer(s): NONE [employer] ST[employer] MANAGER/Reproductive: OVARIAN CYSTS Surgical History Surgical History: OVARIAN CYST REMOVAL Psychosocial History What is your primary language Chinese Tobacco Use: Never used Family History Hx Contributory? No (Panfilo Mena) Review of Systems Review of Systems Constitutional: Reports: no symptoms. EENTM: Reports: no symptoms. Respiratory: Reports: no symptoms. Cardiovascular: Reports: no symptoms. GI: Reports: see HPI, abdominal pain, nausea, vomiting. Genitourinary: Reports: no symptoms. Musculoskeletal: Reports: no symptoms. Skin: Reports: no symptoms. Neurological/Psychological: Reports: no symptoms. Hematologic/Endocrine: Reports: no symptoms. Immunologic/Allergic: Reports: no symptoms. All Other Systems: Reviewed and Negative (Panfilo Mena) Physical Exam Physical Exam General Appearance: well developed/nourished, no apparent distress, alert, awake Head: atraumatic, normal appearance Eyes: Bilateral: normal appearance, PERRL, EOMI. Ears, Nose, Throat, Mouth: dental injury, moist mucous membrane Neck: normal inspection, supple, full range of motion Respiratory: normal breath sounds, chest non-tender, no respiratory distress, lungs clear Cardiovascular: regular rate/rhythm, normal peripheral pulses Peripheral Pulses: 2+ radial (R), 2+ radial (L) Gastrointestinal: normal bowel sounds, soft, no organomegaly, tenderness ( DIFFUSE WORSE RLQ) Back: normal inspection, normal range of motion, no vertebral tenderness Extremities: normal range of motion Neurologic/Psych: no motor/sensory deficits, awake, alert, oriented x 3, normal gait, normal mood/affect Skin: intact, normal color, warm/dry Core Measures ACS in differential dx? No Sepsis Present: No Sepsis Focused Exam Completed? No (Panfilo Mena) Progress Differential Diagnosis: appendicitis, cholecystitis, ectopic , endometritis, gastritis, intrauterine , kidney stone, ovarian cyst, ovarian torsion, PID/cervicitis, SBO, threatened AB, UTI/pyelo Diagnostic Imaging: Viewed by Me: Ultrasound. Discussed w/RAD: Ultrasound. Radiology Impression: PATIENT: JAI IZQUIERDO PRESENT AGE: 32 PATIENT ACCOUNT NO: [id number] : 87 LOCATION: [facility] ORDERING PHYSICIAN: Darci ORO SERVICE DATE: 09/12/17 EXAM TYPE: US - US-TRANSVAGINAL EXAMINATION: TRANSVAGINAL AND TRANSABDOMINAL ULTRASOUND OF THE PELVIS CLINICAL INFORMATION: Right lower quadrant pain. History of ovarian torsion. COMPARISON: 08/05/2017 TECHNIQUE: Real-time scanning of the pelvis is acquired via transabdominal and transvaginal approach. Transvaginal images were obtained for more detailed evaluation of the ovaries. Spectral Doppler evaluation was performed through both ovaries. FINDINGS: UTERUS: Anteverted. Normal in size and appearance, measuring 8.3 x 4 x 5.9 cm (SAG x AP x TRANS). Cervical Length: 3 cm. Maximum Endometrial Thickness: 0.3 cm. Myometrium: Normal. OVARIES AND ADNEXA: The right ovary is enlarged though it measures slightly decreased in size as compared to prior. The measurements below include a heterogeneous mixed cystic and solid vascular structure which is attached to the right ovary. Normal venous and arterial spectral waveforms are present within both ovaries. The left ovary is normal in appearance. Right Ovary: 4.3 x 3.2 x 3.5 cm, volume 25.3 mL. Previously, it measured 5.8 x 3.7 x 4.2 cm. Left Ovary: 2.5 x 2 x 2.8 cm, volume 7.2 mL. FREE FLUID: A small amount free fluid is present in the pelvis.. IMPRESSION: Similar to the prior study, there is asymmetric enlargement of the right ovary. Normal blood flow is present within it at this time. The heterogeneous structure in the right adnexa attached to the right ovary is similar to prior and may represent a portion of the right ovary or an ovarian mass. Consider follow-up MRI of the pelvis with contrast. Small amount of intraperitoneal free fluid DICTATED BY: Dominic Lopez MD DATE/TIME DICTATED:09/12/171928 UNARMED SECURITY GUARD:ERICK DATE/TIME TRANSCRIBED:1928 CONFIDENTIAL, DO NOT COPY WITHOUT APPROPRIATE AUTHORIZATION. < Electronically signed in Other Vendor System> SIGNED BY: Dominic Lopez MD 09/12/171941 Initial ED EKG: none (Adilson ORO,Panfilo) Plan of Care: Orders Procedure Date/time Status URINALYSIS 09/12 1726 Complete LACTIC ACID 09/12 1726 Complete HUMAN BETA HCG SCREEN 09/12 1726 Complete COMPREHENSIVE METABOLIC PANEL 09/12 1726 Complete CBC WITHOUT DIFFERENTIAL 09/12 1726 Complete Laboratory Tests 09/12/172026: Lactic Acid Cancelled 09/12/17 1836: Urinalysis LIGHT H, Urine Color YEL, Urine Clarity HAZY H, Urine pH 8.5 H, Ur Specific [place] 1.015, Urine Protein TRACE H, Urine Ketones NEG, Urine Nitrite NEG, Urine Bilirubin NEG, Urine Urobilinogen 0.2, Ur Leukocyte Esterase TRACE H , Ur Microscopic SEDIMENT EXAMINED, Urine RBC 1-3, Urine WBC 1-3 H, Ur Epithelial Cells FEW, Urine Bacteria RARE H, Urine Mucus FEW, Urine Hemoglobin NEG, Urine Glucose NEG 09/12/17 1746: Anion Gap 11, Estimated GFR > 60, BUN/Creatinine Ratio 17.5, Glucose 93, Lactic Acid 1.0, Calcium 9.2, Total Bilirubin 0.2, AST 19, ALT 25, Alkaline Phosphatase 55, Total Protein 6.7, Albumin 3.9, Globulin 2.8, Albumin/Globulin Ratio 1.4, Total Beta HCG NEGATIVE, CBC w Diff NO MAN DIFF REQ, RBC 5.09, MCV 79.8 L, MCH 25.3 L, MCHC 31.7 L, RDW 14.9 H, MPV 8.1, Gran % 55.7, Lymphocytes % 34.1, Monocytes % 9.0, Eosinophils % 0.8, Basophils % 0.4, Absolute Granulocytes 5.0, Absolute Lymphocytes 3.1, Absolute Monocytes 0.8 H, Absolute Eosinophils 0.1, Absolute Basophils 0 Patient seen and evaluated. She has a history of ovarian torsion. She was seen here August 05 and transferred to [place] for similar symptoms. On exam she reports gradually worsening right lower quadrant pain that initially began around 12:30 and worsened around 4 PM. Labs transvaginal ultrasound to rule out torsion ordered. IV Zofran IV morphine ordered. pt has continued pain additional morphine was ordered. All blood work is within normal limits. Ultrasound documents normal blood flow to the right ovary however does report that the ovary is enlarged with a similar appearance as her previous transfer. Spoke with patient's [facility] doctor Dr. Shcafer who reports that he does not feel the patient actually had ovarian torsion the last time and that she does have a laparoscopy. He recommends getting a CT scan to rule out appendicitis. Patient was updated on the ultrasound findings advised her to the CT scan. Patient states that she is feeling completely better and that she does not want the CAT scan. She states that she is feeling better and wanting to go home and will follow-up with [facility] tomorrow. She states that the pain gets worse she will go to [place]. Advised her that she could be having intermittent torsion of her ovary that could result in necrosis of the ovary that could result in infertility in negative health effects. Patient still wishes to go home. Case was discussed with Dr. Bird. Patient will be discharged home with prescription for Percocet. Advised her if her pain returns that she should return to the emergency Department immediately. Follow-up with Dr. Bartlett tomorrow. (Panfilo Mena) (Marge RODRIGUEZ,Delmar Medrano) Departure Departure Disposition: HOME OR SELF CARE Condition: Stable Clinical Impression Primary Impression: Abdominal pain Qualifiers: Abdominal location: right lower quadrant Qualified Code: R10.31 - Right lower quadrant pain Referrals: Patient Has No Primary Care Dr (PCP/Family) Additional Instructions: It is very important that YOU monitor symptoms. If you have any worsening pain or any other concerns return to the emergency Department immediately. Follow-up with her [facility] doctor tomorrow. Percocet as needed for pain monitor symptoms return with any concerns. Departure Forms: Customer Survey General Discharge Information Prescriptions: Current Visit Scripts Oxycodone HCl/Acetaminophen (Percocet 5-325 MG Tablet) 1 TAB PO 4 TIMES/DAY #10 TAB (Panfilo Mena) PA/SHOPPER'S AIDE Co-Sign Statement Statement: ED Attending supervision documentation- [] I saw and evaluated the patient. I have also reviewed all the pertinent lab results and diagnostic results. I agree with the findings and the plan of care as documented in the PA's/SHOPPER'S AIDE's documentation. [X] I have reviewed the ED Record and agree with the PA's/SHOPPER'S AIDE's documentation. [] Additions or exceptions (if any) to the PAs/SHOPPER'S AIDE's note and plan are summarized below: [] (Marge RODRIGUEZ,Delmar Medrano)
[2017-09-12 17:54] LABS: ABSOLUTE BASOPHIL COUNT 0 /CUMM (0.0-0.2); ABSOLUTE EOSINOPHIL COUNT 0.1 /CUMM (0.0-0.7); ABSOLUTE LYMPH COUNT 3.1 /CUMM (1.2-3.4); ABSOLUTE MONOCYTE COUNT 0.8 /CUMM (0.10-0.60); BASOPHIL % 0.4 % (0.0-2.0); EOSINOPHIL % 0.8 % (0-5); GRANULOCYTE % 55.7 % (42.2-75.2); HEMATOCRIT 40.7 % (37-47); MEAN CORPUSCULAR HGB 25.3 PG (27.0-31.0); MEAN CORPUSCULAR HGB CONC 31.7 G/DL (33.0-37.0); MEAN CORPUSCULAR VOLUME 79.8 FL (81.0-99.0); MEAN PLATELET VOLUME 8.1 FL (7.4-10.4); PLATELET COUNT 291 /CUMM (130-400); RBC DISTRIBUTION WIDTH 14.9 % (11.5-14.5); RED BLOOD CELL CT 5.09 /CUMM (4.20-5.40)
--- NOTE | 2017-09-12 19:42 | ULTRASOUND REPORT ---
EXAMINATION: TRANSVAGINAL AND TRANSABDOMINAL ULTRASOUND OF THE PELVIS CLINICAL INFORMATION: Right lower quadrant pain. History of ovarian torsion. COMPARISON: 08/05/2017 TECHNIQUE: Real-time scanning of the pelvis is acquired via transabdominal and transvaginal approach. Transvaginal images were obtained for more detailed evaluation of the ovaries. Spectral Doppler evaluation was performed through both ovaries. FINDINGS: UTERUS: Anteverted. Normal in size and appearance, measuring 8.3 x 4 x 5.9 cm (SAG x AP x TRANS). Cervical Length: 3 cm. Maximum Endometrial Thickness: 0.3 cm. Myometrium: Normal. OVARIES AND ADNEXA: The right ovary is enlarged though it measures slightly decreased in size as compared to prior. The measurements below include a heterogeneous mixed cystic and solid vascular structure which is attached to the right ovary. Normal venous and arterial spectral waveforms are present within both ovaries. The left ovary is normal in appearance. Right Ovary: 4.3 x 3.2 x 3.5 cm, volume 25.3 mL. Previously, it measured 5.8 x 3.7 x 4.2 cm. Left Ovary: 2.5 x 2 x 2.8 cm, volume 7.2 mL. FREE FLUID: A small amount free fluid is present in the pelvis.. IMPRESSION: Similar to the prior study, there is asymmetric enlargement of the right ovary. Normal blood flow is present within it at this time. The heterogeneous structure in the right adnexa attached to the right ovary is similar to prior and may represent a portion of the right ovary or an ovarian mass. Consider follow-up MRI of the pelvis with contrast. Small amount of intraperitoneal free fluid
[2017-09-12] MEDS ORDERED: PERCOCET 5-3251 EACH PO (20:52)
[2017-09-12 21:03] VITALS: BP 113/71
== END 2017-09-12 21:04 ==
LOC: ERH 17:20
PROVIDERS: Physician Assistant
DX: R10.31 Right lower quadrant pain (principal)
CPT/HCPCS: 81001; 96374; 96375; 96376; J2405